=== PATIENT | male | born 1990 | race Caucasian/White ===

== ENCOUNTER → 2016-06-14 | Day surgery (SDC) | payer OTHER ==
[~2016-06-14] MED LIST: AUGMENTIN PO; PEN-VEE K PO; SYNTHROID75 MCG PO; VOLTAREN75 MG PO
--- NOTE | ~2016-06-14 | OR ---
Unit #: [id number] #: [id number] Patient: MINI GANNON [id number] [address] [place], [place] [address] [id number] O MR#: [id number] NAME: MINI GANNON ROOM: Date of Procedure: 06/14/2016 Admission Date: 06/14/2016 Surgeon: Cole Blair III, M.D. : 1990 Attending Physician: Cole Blair III, M.D. Primary Care Physician: Lynn Martinez M.D. OPERATIVE REPORT PREOPERATIVE DIAGNOSIS Recurrent chin mass/nonhealing wound. POSTOPERATIVE DIAGNOSIS Recurrent chin mass/nonhealing wound. PROCEDURE PERFORMED Excision of recurrent chin mass/nonhealing wound. The excision site was 1.4 cm. ANESTHESIA General. SPECIMEN Tissue to pathology. COMPLICATIONS None apparent. INDICATIONS FOR PROCEDURE This is a 25-year-old gentleman, who had a previous cystic type mass on the inferior portion of his chin. He underwent excision of this; however, as soon as sutures were taken out, he closely shaved the area, irritated the incision and it quickly became a nonhealing wound/recurrent mass. He is here today for re-excision. DESCRIPTION OF PROCEDURE After consent was obtained, the patient was brought to the operating room and placed in the supine position. General anesthetic was administered and his anterior and inferior chin area were prepped and draped in standard surgical fashion. I injected the area with 0.25% plain Marcaine. I made an elliptical incision around the incision that was approximately 1 cm wide and 4 cm in length. This went all the way down to the mandible leaving a little bit of fascia overlying the mandible. Again, there exist very much tissue between his skin and the bony structures. I excised this area. I achieved good hemostasis and I reapproximated the skin edges with interrupted 4-0 nylon vertical mattress sutures. He tolerated the procedure without any problems and returned to recovery room in stable condition. Dictated by... Cole Blair III, M.D. Unit #: [id number] #: [id number] Patient: MINI GANNON VCL/modl TD: 06/15/2016 21:28 JOB #: [id number] OPERATIVE REPORT X Cole Blair III, MD PROCEDURE OPERATIVE NOTE
--- NOTE | ~2016-06-14 | EKG ---
PATIENT: MINI GANNON UNIT #: [id number] Ventricular Rate: 70 BPM Atrial Rate: 70 BPM P-R Interval: 152 ms QRS Duration: 90 ms Q-T Interval: 358 ms QTC Calculation(Bezet): 386 ms P Outlook: 79 degrees Calculated R Outlook: 78 degrees Calculated T Outlook: 60 degrees Diagnosis Line: Normal sinus rhythm Diagnosis Line: Normal ECG Diagnosis Line: No previous ECGs available Diagnosis Line: Confirmed by DAVID CARDONA MD ([id number]) on 06/17/2016 Diagnosis Line: 7:20:26 AM INTERPRETING MD: DULCE DE ANDA
[2016-06-14 09:16] LABS: BLOOD UREA NITROGEN 15 mg/dL (9-23); BUN/CREATININE RATIO 16.66; CARBON DIOXIDE 32 mmol/L (22-31); CHLORIDE 101 mmol/L (100-111); CREATININE SERUM 0.9 mg/dL (0.6-1.4); GLOM FILT RATE Estimated ABOVE60 mL/min (>60); GLUCOSE FASTING 97 mg/dL (70-110); POTASSIUM 3.6 mmol/L (3.5-5.1); SODIUM 140 mmol/L (135-145)
== END | disposition home or self-care (01) ==
LOC: CSUR 08:23
PROVIDERS: Surgery
DX: L98.499 Non-pressure chronic ulcer of skin of other sites with unspecified severity (principal); F17.210 Nicotine dependence, cigarettes, uncomplicated; Z88.2 Allergy status to sulfonamides; Z79.899 Other long term (current) drug therapy; Z98.890 Other specified postprocedural states
CPT/HCPCS: 80048; 88305; 88312; 93005; J0171; J0690; J1885; J2250; J3010

== ENCOUNTER 2016-09-10 19:19 | Emergency (ER) | payer OTHER | END 2016-09-10 21:00 | disposition home or self-care (01) | LOC: CFTX 19:19 → CED 19:19 → CFTX 20:39 | DX: K08.89 Other specified disorders of teeth and supporting structures (principal); E03.9 Hypothyroidism, unspecified; Z88.2 Allergy status to sulfonamides; Z79.899 Other long term (current) drug therapy | CPT/HCPCS: 99282 ==

== ENCOUNTER → 2016-10-24 | Outpatient (CLI) | payer OTHER ==
--- NOTE | ~2016-10-24 | US128 ---
[id number] [facility] [address] [place]. [place], [place] [address] [id number] O MR#: [id number] Acc #: [id number] NAME: MINI GANNON : 1990 SEX: M STUDY DATE/TIME: 10/24/2016 13:45 UNIT: CGUS ROOM: STUDY DESCRIPTION: Thyroid Attending Physician: Lynn Martinez M.D. Referring Physician: Lynn Martinez M.D. Ordering Physician: Lynn Martinez M.D. Primary Care Physician: Lynn Martinez M.D. MEDICAL IMAGING REPORT This report is preliminary unless electronic signature is present EXAM Thyroid ultrasound 10/24/2016 HISTORY Hypothyroidism and thyroid goiter. Diagnosed on physical examination 10/14/2016. Neck fullness on physical examination. FINDINGS The right thyroid lobe measures 4.7 cm x 1.2 cm x 1.7 cm while the left lobe measured 4.9 cm x 1.1 cm x 1.4 cm. The isthmus measured 3 mm in the AP direction. Both thyroid lobes are heterogeneous in echotexture but no discrete cystic or solid mass lesions were identified. There are no masses extrinsic to the thyroid. Color-flow Doppler images show hypervascularity of both thyroid lobes. IMPRESSION Diffusely heterogeneous hypervascular thyroid demonstrating no discrete cystic or solid nodules. Dictated by... Andres Schwarz M.D. THIS IS AN ELECTRONICALLY VERIFIED REPORT Andres Schwarz M.D. at 10/25/2016 10:18 AM EVA/axel TD: 10/24/2016 19:36 JOB #: [id number] MEDICAL IMAGING REPORT Page 1 of 1 COPY
== END | disposition home or self-care (01) ==
LOC: CGUS 13:05
DX: E03.9 Hypothyroidism, unspecified (principal)
CPT/HCPCS: 76536